=== PATIENT | male | born 1970 | race Caucasian/White ===

== ENCOUNTER 2019-01-29 09:03 | Day surgery (SDC) | payer BC ==
[2019-01-28 10:28] VITALS: BMI 34.9
[~2019-01-29 09:03] MED LIST: LACTATED RINGERS 1,000 ML IV SCH
[2019-01-29 10:01] VITALS: RESP 16; TEMP 96.8
[2019-01-29] MEDS ORDERED: LIDOCAINE 1% 20 ML VIAL (10MG/ML) FOR IV START INTRADERMA ONE (10:03)
[2019-01-29] MEDS ORDERED: PROPOFOL 10 MG/ML 20 ML VIAL IV ONE (10:48)
[2019-01-29] MEDS ORDERED: MIDAZOLAM 2 MG/2 ML VIAL ONE (10:48)
[2019-01-29] MEDS ORDERED: LIDOCAINE 1% INJ 10MG/ML (20 ML MDV) ONE (10:48)
--- NOTE | 2019-01-29 11:21 | P.PCN ---
Date of Procedure: 01/29/19 Procedure(s) Performed: Procedure: Esophagogastroduodenoscopy and biopsy. Preoperative diagnosis: Chronic reflux symptoms requiring therapy. Postoperative diagnosis: 1. Small sliding hiatal hernia with no definite esophagitis or complicated reflux disease. 2. Mild antral gastritis. 3. Multiple biopsies of the duodenum, and esophagus. Preparation and sedation: Was provided by anesthesia. Clinical history the patient is a 48-year-old male who is scheduled for this evaluation because of chronic reflux symptoms for more than 10 years requiring ongoing medical therapy with treatment. No alarm symptoms. This evaluation is to assess for complicated reflux disease or other pathology. Procedure: With the patient on his left lateral decubitus position and after informed consent and adequate sedation, I passed the Olympus-GIF H 190 video upper endoscope through the cricopharyngeus down the esophagus. GE junction was around 40 cm from the incisors and there was a small sliding hiatal hernia measuring between 1 and 2 cm. The esophagus did not show any obvious esophagitis or complicated reflux disease. Specifically, no strictures or Ford's esophagus. The endoscope was then passed into the stomach which was insufflated with air and inspected in detail including the retroflex view in the cardia. There was some mottling and erythema in the antrum but no ulcers or erosions. Pyloric channel, duodenal bulb, post bulbar area and descending duodenum appeared within normal limits. I obtained biopsies from the duodenum, antrum and esophagus then the endoscope was withdrawn. The patient tolerated the procedure well. Plan: Await biopsy results and make further plans based on course and biopsy results. He will follow up with you as planned.
[2019-01-29 11:49] VITALS: BP 126/84; PULSE 80
== END 2019-01-29 11:56 | disposition home or self-care (01) ==
LOC: ORWHC2ENDO 09:03
DX: K21.9 Gastro-esophageal reflux disease without esophagitis (principal); K29.50 Unspecified chronic gastritis without bleeding; K44.9 Diaphragmatic hernia without obstruction or gangrene; I10 Essential (primary) hypertension; E78.5 Hyperlipidemia, unspecified; J45.909 Unspecified asthma, uncomplicated; E07.9 Disorder of thyroid, unspecified; Z79.890 Hormone replacement therapy; Z79.899 Other long term (current) drug therapy; Z88.6 Allergy status to analgesic agent; Z88.8 Allergy status to other drugs, medicaments and biological substances
CPT/HCPCS: 43239; 88305; J2250; J2001; J2704

== ENCOUNTER 2020-03-03 07:45 | Day surgery (SDC) | payer BC ==
[2020-02-27 13:43] VITALS: BMI 34.2
[~2020-03-03 07:45] MED LIST changes: +LIDOCAINE 1% (10MG/ML) FOR IV START INTRADERMA PRN
[2020-03-03 08:36] VITALS: TEMP 97.6
[2020-03-03] MEDS ORDERED: PROPOFOL 10 MG/ML 20 ML VIAL IV ONE (09:12)
[2020-03-03] MEDS ORDERED: fentaNYL (PF) 50 MCG/ML 2 ML AMP ONE (09:12)
[2020-03-03] MEDS ORDERED: MIDAZOLAM 2 MG/2 ML VIAL ONE (09:12)
[2020-03-03] MEDS ORDERED: LIDOCAINE 1% INJ 10MG/ML (20 ML MDV) ONE (09:12)
--- NOTE | 2020-03-03 09:39 | P.PCN ---
Date of Procedure: 03/03/20 Description of Procedure: BRIEF HISTORY: Patient is a 50-year-old male presenting for outpatient colonoscopy for screening or malignant neoplasm colon. No prior colonoscopy. No change in bowel habits, or abdominal pain reported. The report intermittent perirectal bleeding. PROCEDURE PERFORMED: Colonoscopy with polypectomy. PREOPERATIVE DIAGNOSIS: Screening for malignant neoplasm colon, no prior colonoscopy reported. ESTIMATED BLOOD LOSS: Minimal. IV sedation per Anesthesia. PROCEDURE: After informed consent was obtained, the patient, was brought into the endoscopy unit. IV sedation was administered by Anesthesia under continuous monitoring. Digital rectal examination was normal. Initially the Olympus CF-190 flexible video colonoscope was then inserted in the rectum, gradually advanced into the cecum without any difficulty. Careful examination was performed as the scope was gradually being withdrawn. Ileocecal valve and the appendiceal orifice were visualized and appeared normal. Prep was excellent. Mucosa of the cecum, ascending colon, transverse colon, descending colon, sigmoid colon, and rectum appeared normal. A few scattered small diverticula in the sigmoid colon. 2 diminutive 1mm polyps removed from rectum with cold forceps. Retroflexion was performed in the rectum and no lesions were seen, mild internal hemorrhoids. The patient tolerated the procedure well. IMPRESSION: 2 diminutive polyps removed from rectum with cold forceps. Mild sigmoid diverticulosis. Low-grade internal hemorrhoids. RECOMMENDATIONS: Findings of this examination were discussed with the patient. Okay to resume diet and medications. Would recommend fiber supplementation in the setting of diverticulosis. Await pathology from polypectomy. Would recommend repeat colonoscopy in 7-10 years pending pathology from polypectomys.
[2020-03-03 10:19] VITALS: BP 118/77; PULSE 75; RESP 16
== END 2020-03-03 10:26 | disposition home or self-care (01) ==
LOC: ORWHC2ENDO 07:45
PROVIDERS: ATTEND Internal Medicine
DX: K62.1 Rectal polyp (principal); K57.30 Diverticulosis of large intestine without perforation or abscess without bleeding; K64.8 Other hemorrhoids; E78.5 Hyperlipidemia, unspecified; J45.909 Unspecified asthma, uncomplicated; E07.9 Disorder of thyroid, unspecified; K21.9 Gastro-esophageal reflux disease without esophagitis; Z88.8 Allergy status to other drugs, medicaments and biological substances; Z88.6 Allergy status to analgesic agent; Z79.899 Other long term (current) drug therapy; Z79.890 Hormone replacement therapy; Z80.0 Family history of malignant neoplasm of digestive organs
CPT/HCPCS: 45380; J2250; J2001; J3010; J2704; 88305

== ENCOUNTER → 2021-04-19 | Outpatient (CLI) | payer BC | END | disposition home or self-care (01) | LOC: LABWHC1 14:20 | PROVIDERS: ATTEND Family Medicine | DX: U07.1 COVID-19 (principal) | CPT/HCPCS: U0003; C9803; U0005 ==